=== PATIENT | female | born 1980 | race Caucasian/White ===

== ENCOUNTER 2019-12-15 19:17 | Emergency (ER) | payer OTHER, MEDICAID ==
[~2019-12-15] VITALS: Ht 162.6 cm; Wt 91.2 kg
[2019-12-15 19:26] VITALS: Ht 162.6 cm; Wt 91.2 kg
[2019-12-15 20:26] VITALS: BP 135/80
== END 2019-12-15 20:26 | disposition home or self-care (01) ==
LOC: ED 19:17
DX: S40.011A Contusion of right shoulder, initial encounter (principal); V49.9XXA Car occupant (driver) (passenger) injured in unspecified traffic accident, initial encounter; Y93.89 Activity, other specified; Y92.413 State road as the place of occurrence of the external cause; Y99.8 Other external cause status